=== PATIENT | male | born 1965 | race Caucasian/White ===

== ENCOUNTER 2016-05-05 08:38 | Day surgery (SDC) | payer OTHER ==
[2015-12-14 10:37] VITALS: BMI 34.4
[2016-05-05] MEDS ORDERED: MIDAZOLAM HCL 2 MG/2 ML SINGLE DOSE VIAL ONE ×2 (10:24)
[2016-05-05] MEDS ORDERED: DEXAMETHASONE SOD PHOSPHATE 4 MG/1 ML VIAL ONE (10:25)
[2016-05-05] MEDS ORDERED: LEVOFLOXACIN 500 MG PREMIX BAG IVPB ONE ×2 (10:35→10:36)
[2016-05-05] MEDS ORDERED: PROMETHAZINE HCL 25 MG/1 ML VIAL IVPUSH PRN (11:11)
[2016-05-05] MEDS ORDERED: ONDANSETRON 4 MG/2 ML VIAL IVPUSH PRN (11:11)
[2016-05-05] MEDS ORDERED: oxyCODONE HCL 5 MG TABLET PO PRN (11:11)
--- NOTE | 2016-05-05 11:14 | OP ---
Operative Note - Note: Operative Date: 05/05/16 Pre-Operative Diagnosis: right renal stone Operation: right eswl Findings: 7 mm right renal stone Post-Operative Diagnosis: Same as Pre-op Surgeon: Tre Dunn Anesthesia: General
[2016-05-05] MEDS ORDERED: LACTATED RINGERS SOLUTION 1,000 ML IV SCH (11:15)
[2016-05-05 12:01] VITALS: TEMP 98.5
[2016-05-05] MEDS ORDERED: oxyCODONE HCL 5 MG TABLET ONE (12:50)
[2016-05-05 16:01] VITALS: BP 130/80; PULSE 78
--- NOTE | 2016-05-06 08:56 | OP ---
DATE OF OPERATION: 05/05/2016 PREOPERATIVE DIAGNOSIS: Right renal stone. POSTOPERATIVE DIAGNOSIS: Right renal stone. PROCEDURE: Right extracorporeal shock wave lithotripsy. ATTENDING: Kalpesh Harris MD ANESTHESIA: General. OPERATION: The patient was brought in the operating room, placed in supine position on the operating room table. Ultrasonography and fluoroscopy were performed. A 7-mm right mid pole stone was identified. General anesthesia was then administered. Antibiotics were given prophylactically. Then, 2500 impulses at 17-18 joules of power were administered to the stone. No complications were noted. The patient tolerated the procedure very well. The disposition of the patient was to the recovery room. KALPESH HARRIS M.D. [id number]
== END 2016-05-05 13:17 | disposition home or self-care (01) ==
LOC: JASU-SURG 08:38
PROVIDERS: ATTEND Urology
PROC: 0TF3XZZ Fragmentation in Right Kidney Pelvis, External Approach (ICD-10-PCS; principal; 2016-05-05 10:15)
DX: N20.0 Calculus of kidney (principal)
CPT/HCPCS: 94760

== ENCOUNTER 2016-12-29 11:48 | Emergency (ER) | payer SELFPAY ==
[2016-12-29 12:00] VITALS: PULSE 73; TEMP 98.6; BMI 33.5
--- NOTE | 2016-12-29 12:33 | PDOC ---
Attending Attestation - Resident Resident Name: Tayo Yepez - ED Attending Attestation I have performed the following: I have examined & evaluated the patient, The case was reviewed & discussed with the resident, I agree w/resident's findings & plan, Exceptions are as noted - HPI HPI: 12/29/16 12:33 Chest Pain - Physicial Exam PE: 12/29/16 12:33 VSS/NAD - Medical Decision Making 12/29/16 12:[address] Yepez's Assessment and Plan
--- NOTE | 2016-12-29 12:34 | PDOC ---
History of Present Illness <Clayton Ryder - Last Filed: 12/29/16 15:25> - History of Present Illness Initial Comments: 12/29/16 12:18 Mr. Dodson is a 51 yo male with a significant past medical history of DM, HTN, and kidney stones who presents to the emergency department with a 24 hour history of dull chest pain (non-reproducible) radiating to the back with coinciding Left upper quadrant pain he says he has had for years. He says that the pain was much more severe yesterday (8-9/10 pain). The patient denies, shortness of breath, headache and dizziness. Denies fever, chills, nausea, vomit, diarrhea and constipation. Denies dysuria, frequency, urgency and hematuria. Allergies:NKDA <Tayo Yepez - Last Filed: 12/29/16 15:34> - General Chief Complaint: Chest Pain Stated Complaint: CHEST PAIN Time Seen by Provider: 12/29/16 12:18 Past History <Clayton Ryder - Last Filed: 12/29/16 15:25> - Past Medical History Anemia: No Asthma: No Cancer: No Cardiac Disorders: No CVA: No COPD: No CHF: No Dementia: No Diabetes: Yes (IDDM) GI Disorders: No Disorders: Yes (kidney stones) HTN: Yes Hypercholesterolemia: Yes Kidney Stones: Yes Liver Disease: No Seizures: No Thyroid Disease: No - Suicide/Smoking/Psychosocial Hx Smoking History: Never smoked Have you smoked in the past 12 months: No Information on smoking cessation initiated: No Hx Alcohol Use: No Drug/Substance Use Hx: No Substance Use Type: None <Tayo Yepez - Last Filed: 12/29/16 15:34> - Past Medical History Allergies/Adverse Reactions: Allergies Allergy/AdvReac Type Severity Reaction Status Date / Time No Known Drug Allergies Allergy Verified 12/29/16 11:57 Home Medications: Ambulatory Orders Insulin Glargine,Hum.rec.anlog [Lantus (10mL VIAL) -] 50 units SQ HS 07/14/15 Insulin Sliding Scale [Novolog Vial Sliding Scale -] See Protocol SQ TIDAC 07/15 Lisinopril 5 mg PO DAILY 05/02/16 Canagliflozin [Invokana] 100 mg PO DAILY 12/29/16 Omeprazole 20 mg PO DAILY 12/29/16 Sitagliptin Phosphate [Januvia] 50 mg PO DAILY@0700 12/29/16 Review of Systems - Review of Systems Comments:: 12/29/16 12:19 GENERAL/CONSTITUTIONAL: No fever or chills. No weakness. HEAD, EYES, EARS, NOSE AND THROAT: No change in vision. No ear pain or discharge. No sore throat. CARDIOVASCULAR: +Dull chest pain radiating to back that has resolved somewhat from yesterday. No shortness of breath RESPIRATORY: No cough, wheezing, or hemoptysis. GASTROINTESTINAL: +Left upper quadrant pain. No nausea, vomiting, diarrhea or constipation. GENITOURINARY: No dysuria, frequency, or change in urination. MUSCULOSKELETAL: No joint or muscle swelling or pain. No neck or back pain. SKIN: No rash NEUROLOGIC: No headache, vertigo, loss of consciousness, or change in strength/ sensation. ENDOCRINE: No increased thirst. No abnormal weight change HEMATOLOGIC/LYMPHATIC: No anemia, easy bleeding, or history of blood clots. ALLERGIC/IMMUNOLOGIC: No hives or skin allergy. <Tayo Yepez - Last Filed: 12/29/16 15:34> *Physical Exam - Vital Signs Last Vital Signs Temp Pulse Resp BP Pulse Ox 98.6 F 73 18 115/73 98 12/29/16 11:57 12/29/16 11:57 12/29/16 11:57 12/29/16 11:57 12/29/16 11:57 <Clayton Ryder - Last Filed: 12/29/16 15:25> - Vital Signs Last Vital Signs Temp Pulse Resp BP Pulse Ox 98.6 F 73 18 115/73 98 12/29/16 11:57 12/29/16 11:57 12/29/16 11:57 12/29/16 11:57 12/29/16 11:57 - Physical Exam Comments: 12/29/16 12:19 GENERAL: Awake, alert, and fully oriented, in no acute distress HEAD: No signs of trauma, normocephalic, atraumatic EYES: PERRLA, EOMI, sclera anicteric, conjunctiva clear ENT: Auricles normal inspection, hearing grossly normal, nares patent, oropharynx clear without exudates. Moist mucosa NECK: Normal ROM, supple, no lymphadenopathy, JVD, or masses LUNGS: No distress, speaks full sentences, clear to auscultation bilaterally HEART: Regular rate and rhythm, normal S1 and S2, no murmurs, rubs or gallops, peripheral pulses normal and equal bilaterally. ABDOMEN: +Patient reports mild increase of LUQ pain with deep palpation. Soft, normoactive bowel sounds. No guarding, no rebound. No masses EXTREMITIES: Normal inspection, Normal range of motion, no edema. No clubbing or cyanosis. NEUROLOGICAL: Cranial nerves II through XII grossly intact. Normal speech, normal gait, no focal sensorimotor deficits SKIN: Warm, Dry, normal turgor, no rashes or lesions noted. <Tayo Yepez - Last Filed: 12/29/16 15:34> ED Treatment Course - LABORATORY CBC & Chemistry Diagram: 12/29/16 12:45 12/29/16 12:45 - ADDITIONAL ORDERS Additional order review: Laboratory Results 12/29/16 12:45 Sodium 139 Potassium 4.3 Chloride 103 Carbon Dioxide 28 Anion Gap 8 BUN 12 D Creatinine 0.8 Creat Clearance w eGFR > 60 Random Glucose 172 H D Calcium 9.2 Total Bilirubin 0.3 D AST 17 D ALT 32 D Alkaline Phosphatase 97 Creatine Kinase 109 Troponin I < 0.02 Total Protein 7.0 Albumin 3.3 L 12/29/16 12:45 RBC 5.65 H MCV 81.1 MCHC 32.4 RDW 13.9 MPV 8.0 Neutrophils % 59.7 Lymphocytes % 31.6 Monocytes % 4.6 Eosinophils % 3.3 Basophils % 0.8 <Clayton Ryder - Last Filed: 12/29/16 15:25> - LABORATORY CBC & Chemistry Diagram: 12/29/16 12:45 12/29/16 12:45 <Tayo Yepez - Last Filed: 12/29/16 15:34> Medical Decision Making - Medical Decision Making 12/29/16 15:32 Patient labs negative for acute process, KUB positive for splenic flexure syndrome. Simethicone and Milk of Magnesia given - will discharge to home with instructions to return if no relief with bowel movement. Will instruct to follow -up as needed outpatient with PCP for management. <Tayo Yepez - Last Filed: 12/29/16 15:34> *DC/Admit/Observation/Transfer <Clayton Ryder Last Filed: 12/29/16 15:25> <Tayo Yepez - Last Filed: 12/29/16 15:34> Diagnosis at time of Disposition: Splenic flexure syndrome - Discharge Dispostion Disposition: HOME - Referrals Referrals: Chaim Wade MD [Primary Care Provider] - - Patient Instructions Printed Discharge Instructions: DI for Constipation Print Language: TURKMEN
[2016-12-29 13:20] LABS: BASOPHIL 0.8 % (0-2.0); EOSINOPHIL 3.3 % (0-4.5); MCH 26.3 pg (25.7-33.7); MCHC 32.4 g/dl (32.0-35.9); MEAN CELL VOLUME 81.1 fl (80-96); NEUTROPHILS 59.7 % (42.8-82.8); PLATELET COUNT 227 K/MM3 (134-434); RDW 13.9 % (11.9-15.9); WHITE BLOOD COUNT 7.7 K/mm3 (4.0-10.0)
[2016-12-29 13:46] LABS: ALBUMIN 3.3 g/dl (3.4-5.0); ANION GAP 8 (8-16); BILIRUBIN,TOTAL 0.3 mg/dL (0.2-1.0); CALCIUM 9.2 mg/dL (8.5-10.1); CO2 28 mmol/L (21-32); CREATININE 0.8 mg/dL (0.7-1.3); GLUCOSE,RANDOM 172 mg/dL (74-106); SGOT/AST 17 U/L (15-37); SGPT/ALT 32 U/L (12-78)
[2016-12-29 13:48] LABS: ALK PHOS 97 U/L (45-117); CPK 109 IU/L (39-308); TROPONIN I < 0.02 ng/ml (0.00-0.05)
--- NOTE | 2016-12-29 15:09 | EKG ---
Test Reason : Blood Pressure : / mmHG Vent. Rate : 067 BPM Atrial Rate : 067 BPM P-R Int : 146 ms QRS Dur : 084 ms QT Int : 364 ms P-R-T Axes : 019 006 013 degrees QTc Int : 384 ms NORMAL SINUS RHYTHM NORMAL ECG WHEN COMPARED WITH ECG OF 14-JUL-2015 17:05, NO SIGNIFICANT CHANGE WAS FOUND Confirmed by LINNEA LYON MD ([id number]) on 12/29/2016 3:09:08 PM Referred By: Confirmed By:LINNEA LYON MD
[2016-12-29] MEDS ORDERED: MAGNESIUM HYDROX 2400MG/30ML ORAL SUSPENSION 30 ML CUP PO ONE (15:23)
[2016-12-29] MEDS ORDERED: SIMETHICONE 80 MG TAB.CHEW (FP) PO ONE (15:24)
[2016-12-29] MEDS ORDERED: MAG HYDROX/AL HYDROX/SIMETH 30 ML UNIT-DOSE CUP ONE (16:05)
[2016-12-29 16:50] VITALS: BP 106/71
== END 2016-12-29 16:33 | disposition home or self-care (01) ==
LOC: JER 11:48
DX: I10 Essential (primary) hypertension (principal); E78.00 Pure hypercholesterolemia, unspecified; Z87.442 Personal history of urinary calculi; Z79.4 Long term (current) use of insulin
CPT/HCPCS: 36415; 74000-TC; 80053; 84484; 85025; 93005; 93010; 99284-25

== ENCOUNTER 2017-04-20 08:38 | Day surgery (SDC) | payer OTHER ==
[2017-04-17 08:14] VITALS: BMI 33.2
[2017-04-20 09:02] VITALS: TEMP 98.1
[2017-04-20] MEDS ORDERED: MIDAZOLAM HCL 2 MG/2 ML SINGLE DOSE VIAL ONE (13:04)
[2017-04-20] MEDS ORDERED: LEVOFLOXACIN 500 MG PREMIX BAG IVPB ONE (13:10)
[2017-04-20] MEDS ORDERED: LEVOFLOXACIN 500 MG IVPB 500 MG/100 ML BAG IVPB ONE (13:14)
[2017-04-20 15:10] VITALS: BP 140/75; PULSE 57
--- NOTE | 2017-04-20 17:47 | OP ---
Operative Note - Note: Operative Date: 04/20/17 Pre-Operative Diagnosis: right renal stone Operation: right eswl Post-Operative Diagnosis: Same as Pre-op Surgeon: Tre Dunn Anesthesia: Fractional
== END 2017-04-20 15:13 | disposition home or self-care (01) ==
LOC: JASU-SURG 08:38
PROVIDERS: ATTEND Urology
PROC: 0TF3XZZ Fragmentation in Right Kidney Pelvis, External Approach (ICD-10-PCS; principal; 2017-04-20 11:00)
DX: N20.0 Calculus of kidney (principal)
CPT/HCPCS: 82962